=== PATIENT | male | born 1975 ===

== ENCOUNTER 2017-12-07 00:40 | Inpatient (IN) | payer SELFPAY ==
[2017-12-07 00:40] VITALS: BMI 22.3
--- NOTE | 2017-12-07 00:48 | C.PDOC ---
History Of Present Illness Patient presents to the ER as a transfer from [facility] requiring emergent hemodialysis. Patient has Wednesday, , Wednesday dialysis; he initially presented at [place] with SOB and found to be in acute pulmonary edema. Patient is currently speaking in 4-5 word sentences. Denies fever or chills. Time Seen by Provider: 12/07/17 00:47 History Per: Patient, Other ([place] [facility]) History/Exam Limitations: no limitations Onset/Duration Of Symptoms: Hrs Current Symptoms Are (Timing): Still Present Initiating Event: Other (Not known) Exacerbating Factor(s): Coughing, Other (not known) Current Respiratory Medications: See Home Med List Severity: Moderate Pain Scale Rating Of: 4 Associated Symptoms: denies: Fever, Chills Reports Recently: Treated By A Physician Recent travel outside of the [place]: No Additional History Per: Patient Past Medical History Reviewed: Historical Data, Nursing Documentation, Vital Signs Vital Signs: Last Vital Signs Temp 99.2 F 12/07/17 00:41 Pulse 115 H 12/07/17 00:41 Resp 35 H 12/07/17 01:28 BP 202/108 H 12/07/17 00:41 Pulse Ox 84 L 12/07/17 01:34 - Medical History PMH: Chronic Kidney Disease Family History: States: No Known Family Hx - Social History Hx Alcohol Use: No Hx Substance Use: No Review Of Systems Constitutional: Negative for: Fever, Chills ENT: Negative for: Mouth Swelling, Throat Pain, Throat Swelling Cardiovascular: Negative for: Chest Pain, Palpitations Respiratory: Positive for: Shortness of Breath. Negative for: Cough Gastrointestinal: Negative for: Nausea, Vomiting Genitourinary: Negative for: Dysuria, Hematuria Musculoskeletal: Negative for: Neck Pain, Back Pain Skin: Negative for: Rash, Lesions, Jaundice, Bruising Neurological: Negative for: Weakness, Numbness Physical Exam - Physical Exam Appears: Non-toxic Skin: Warm, Dry Head: Normacephalic Eye(s): bilateral: Normal Inspection Oral Mucosa: Dry Throat: No Erythema, No Exudate Neck: Trachea Midline, Supple Chest: Symmetrical, No Tenderness Cardiovascular: Rhythm Regular Respiratory: Decreased Breath Sounds, Rales (At bases), No Rhonchi, No Wheezing Gastrointestinal/Abdominal: Soft, No Tenderness Back: No CVA Tenderness Extremity: Normal ROM, Other (left arm hd graft with good thrill and bruit) Extremity: Bilateral: Atraumatic Neurological/Psych: Oriented x3 Gait: Steady ED Course And Treatment O2 Sat by Pulse Oximetry: 84 (room air) Critical Care Time - Critical Care Note Total Time (in mins): 30 Documented critical care: time excludes all time spent performing seperately billable procedures. Disposition Discussed With Dr.: Kirit Beck Comment: accepted the pt on his service and took over the care at 1:33 AM Doctor Will See Patient In The: ED Counseled Patient/Family Regarding: Studies Performed, Diagnosis - Disposition Disposition: HOSPITALIZED Disposition Time: 00:47 Condition: GUARDED - POA Present On Arrival: None - Clinical Impression Clinical Impression: Acute pulmonary edema, ESRD needing dialysis - Scribe Statement The provider has reviewed the documentation as recorded by the Scribbo Bustos All medical record entries made by the Scribe were at my direction and personally dictated by me. I have reviewed the chart and agree that the record accurately reflects my personal performance of the history, physical exam, medical decision making, and the department course for this patient. I have also personally directed, reviewed, and agree with the discharge instructions and disposition. Decision To Admit - Pt Status Changed To: Hospital Disposition Of: Inpatient - Admit Certification Admit to Inpatient:: After my assessment, the patient will require hospitalization for at least two midnights. This is because of the severity of symptoms shown, intensity of services needed, and/or the medical risk in this patient being treated as an outpatient. - InPatient: Physician Admission Certification: I certify that this patient requires 2 or more midnights of care for the following reason:: After my assessment, the patient will require hospitalization for at least two midnights. This is because of the severity of symptoms shown, intensity of services needed, and/or the medical risk in this patient being treated as an outpatient. - . Bed Request Type: Telemetry Admitting Physician: Kirit Beck Patient Diagnosis: Acute pulmonary edema, ESRD needing dialysis
--- NOTE | 2017-12-07 01:37 | CP.PCM.HP ---
<Gabby Mott - Last Filed: 12/07/17 06:22> History of Present Illness - History of Present Illness History of Present Illness: History and Physical - Hospitalist Service CC: "Shortness of breath and cough" HPI: Patient is a 42 year old male with past medical history of hypertension, ESRD on HD TThS who was transferred from [facility] ED to [facility] for emergent dialysis. Patient states that for the past few days he has been experiencing worsening shortness of breath. He states that he is complaint with hemodialysis and his medications. He denies any increase in fluid or salt intake. When he went to hemodialysis on Wednesday, 1.5L were removed which is more than usual. Patient states that laying down makes shortness of breath worse and sitting up makes it better. He states that this has never happened to him before. Patient also states that he has been experiencing cough for the past two weeks. Within the last 2 days, cough has been productive with orange sputum. He denies any sick contacts or recent travel. Patient is still short of breath and actively coughing. He last saw Dr Duarte 2 weeks ago. At that time, one of his medications were stopped (he is unsure which one) and he was started on Clonidine 0.1mg PO BID. He denies fevers, chills, headaches, dizziness, changes in vision/hearing, nausea/vomiting, chest pain, palpitations, abdominal pain, urinary symptoms, changes in bowel habits, leg swelling/pain. Patient states that he still makes small amounts of urine. 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 Family History: Mother - healthy; Father - healthy Present on Admission - Present on Admission Any Indicators Present on Admission: No Past Patient History - Past Social History Smoking Status: Never Smoked - CARDIAC Hx Cardiac Disorders: No Hx Hypertension: Yes - PULMONARY Hx Respiratory Disorders: No - NEUROLOGICAL Hx Neurological Disorder: No - RENAL Hx Chronic Kidney Disease: Yes - ENDOCRINE/METABOLIC Hx Endocrine Disorders: No - PSYCHIATRIC Hx Substance Use: No - SURGICAL HISTORY Hx Surgeries: No - ANESTHESIA Hx Anesthesia: Yes Hx Anesthesia Reactions: No Meds Allergies/Adverse Reactions: Allergies Allergy/AdvReac Type Severity Reaction Status Date / Time No Known Allergies Allergy Verified 12/07/17 00:48 Physical Exam - Constitutional Appears: Non-toxic, In Acute Distress - Head Exam Head Exam: ATRAUMATIC, NORMAL INSPECTION, NORMOCEPHALIC - Eye Exam Eye Exam: EOMI, PERRL Pupil Exam: NORMAL ACCOMODATION - ENT Exam ENT Exam: Mucous Membranes Moist, Normal Oropharynx - Neck Exam Neck exam: Positive for: Normal Inspection. Negative for: Lymphadenopathy, Tenderness, Thyromegaly - Respiratory Exam Respiratory Exam: Decreased Breath Sounds, Rales, Respiratory Distress. absent: Accessory Muscle Use, Wheezes, Stridor - Cardiovascular Exam Cardiovascular Exam: Tachycardia, +S1, +S2. absent: Systolic Murmur - GI/Abdominal Exam GI & Abdominal Exam: Normal Bowel Sounds, Soft. absent: Guarding, Rebound, Rigid, Tenderness - Extremities Exam Extremities exam: Positive for: normal capillary refill, normal inspection, pedal pulses present. Negative for: calf tenderness, joint swelling, pedal edema - Back Exam Back exam: NORMAL INSPECTION - Neurological Exam Neurological exam: Alert, CN II-XII Intact, Oriented x3 - Psychiatric Exam Psychiatric exam: Anxious, Normal Mood - Skin Skin Exam: Dry, Normal Color, Warm Results - Vital Signs Recent Vital Signs: Last Vital Signs Temp 99.2 F 12/07/17 00:41 Pulse 115 H 12/07/17 00:41 Resp 35 H 12/07/17 01:28 BP 202/108 H 12/07/17 00:41 Pulse Ox 84 L 12/07/17 01:34 Assessment & Plan - Assessment and Plan (Free Text) Assessment: A/P: Patient is a 42 year old male with past medical history of ESRD on HD TThS and Hypertension who presented with worsening shortness of breath and cough. Patient transferred to [facility] for emergent dialysis. Shortness of Breath likely 2/2 fluid overload -Will admit inpatient to telemetry -CXR showed pulmonary venous congestion (official report pending) -EKG showed sinus tachycardia -Elevated BNP 233,000 -Echocardiogram ordered -Nephrology on consult, help appreciated -Supplemental O2 as needed Productive cough, r/o infectious etiology -Blood cultures, UA pending -F/U urine legionella, urine strep pneumo, mycoplasma -Robitussin DM Q4H prn cough ESRD on HD -Patient currently receiving dialysis -Will resume Calcium acetate 667mg PO TID -Renal diet: low sodium, fluid restriction -Daily weights and intake/output -Nephrology on consult, Dr Duarte, help appreciated Hypertension -Clonidine 0.1mg PO BID -Aldactone 25mg PO daily -Norvasc 10mg PO daily -Benzapril 40mg PO daily Anemia -Hemoglobin 10.7 on admission, Unknown baseline -Likely secondary to chronic disease -Monitor hemoglobin GI/DVT ppx: -No GI ppx indicated at this time -SCDs Plan discussed with Dr Kary Mott DO PGY-2 <Kirit Beck - Last Filed: 12/07/17 06:32> Results - Vital Signs Recent Vital Signs: Last Vital Signs Temp 98.2 F 12/07/17 06:23 Pulse 108 H 12/07/17 06:23 Resp 26 H 12/07/17 06:23 BP 182/110 H 12/07/17 06:23 Pulse Ox 95 12/07/17 06:23 - Labs Labs: Laboratory Results - last 24 hr 12/07/17 01:23 Lactic Acid 1.6 Assessment & Plan - Date & Time Date: 12/07/17 (I have seen and examined the patient. I agree with the findings and plan of care as documented by Dr. Mott. Patient with ESRD on dialysis. Also with SOB. Likely related to fluid overload. Consult to nephro for dialysis. Monitor for acute changes.) Time: 06:31 Attending/Attestation - Attestation I have personally seen and examined this patient.: Yes I have fully participated in the care of the patient.: Yes I have reviewed all pertinent clinical information: Yes
[2017-12-07] MEDS: guaiFENesin DM 100 mg-10 mg/5 ml UD PO PRN ×2 (05:36→21:13)
[2017-12-07] MEDS ORDERED: guaiFENesin DM 100 mg-10 mg/5 ml UD ONE (05:38)
[2017-12-07 07:07] LABS: BASO # 0.1 K/uL (0.0-0.2); EOS % 0.5 % (0.0-4.0); HEMOGLOBIN 11.5 g/dL (12.0-18.0); LYMPH # 1.5 K/uL (1.0-4.3); MEAN CELL VOLUME 93.2 fL (80.0-94.0); MEAN CORPUSCULAR HEMOGLOBIN 31.7 pg (27.0-31.0); MEAN PLATELET VOLUME 10.6 fL (7.2-11.7); MONO # 0.4 K/uL (0.0-0.8); MONO % 6.2 % (0.0-10.0); NEUT # 4.8 K/uL (1.8-7.0); NEUT % 70.3 % (50.0-75.0); RBC 3.64 Mil/uL (4.40-5.90); RED CELL DISTRIBUTION WIDTH 16.6 % (11.5-14.5); WHITE BLOOD COUNT 6.8 K/uL (4.8-10.8)
--- NOTE | 2017-12-07 08:08 | CP.PCM.CON ---
<Gabriella Mejia - Last Filed: 12/07/17 14:02> History of Present Illness - History of Present Illness History of Present Illness: Gabriella Mejia DO, PGY-2: Nephrology Consult Note for Dr. Duarte 42 year old male with a past medical history of ESRD on HD TTS and hypertension who presents with 1 week of a dry cough and one day of severe dyspnea and paroxysmal nocturnal dyspnea. He originally presented overnight to [facility] and was transferred to [facility] to undergo emergent dialysis. 1 L of fluid was removed last night. On Wednesday he had 1.5 L of fluid removed. He reports attending all of his dialysis sessions last week. He reports taking all of his medication as prescribed. He denies any increase in salt intake or fluid intake. Two weeks ago he reports that was switched from Hydralazine to Clonidine by his primary material man. He denies experiencing any severe chest pain, diaphoresis, palpitation, headache, nausea, dysuria, vomiting, fever, chills, or myalgia. he also denies having any sick contacts. 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 Family History: Mother - healthy; Father - healthy Review of Systems - Review of Systems All systems: reviewed and no additional remarkable complaints except (as per HPI) Past Patient History - Past Social History Smoking Status: Never Smoked - CARDIAC Hx Cardiac Disorders: No Hx Hypertension: Yes - PULMONARY Hx Respiratory Disorders: No - NEUROLOGICAL Hx Neurological Disorder: No - RENAL Hx Chronic Kidney Disease: Yes - ENDOCRINE/METABOLIC Hx Endocrine Disorders: No - PSYCHIATRIC Hx Substance Use: No - SURGICAL HISTORY Hx Surgeries: No - ANESTHESIA Hx Anesthesia: Yes Hx Anesthesia Reactions: No Meds Allergies/Adverse Reactions: Allergies Allergy/AdvReac Type Severity Reaction Status Date / Time No Known Allergies Allergy Verified 12/07/17 00:48 - Medications Medications: Current Medications Amlodipine Besylate (Norvasc) 10 mg PO DAILY [facility] Calcium Acetate (Phoslo) 667 mg PO TIDCC [facility] Clonidine HCl (Catapres) 0.1 mg PO BID [facility] Enalapril Maleate (Vasotec) 20 mg PO DAILY [facility] Guaifenesin/Dextromethorphan (Robitussin Dm) 5 ml PO Q4H PRN PRN Reason: Cough Last Admin: 12/07/17 05:36 Dose: 5 ml Spironolactone (Aldactone) 25 mg PO DAILY [facility] Physical Exam - Constitutional Appears: Other (some distress) - Head Exam Head Exam: ATRAUMATIC, NORMOCEPHALIC - Eye Exam Eye Exam: EOMI, Normal appearance - ENT Exam ENT Exam: Mucous Membranes Dry - Neck Exam Additional comments: JVD noted - Respiratory Exam Respiratory Exam: Rales Additional comments: RR of 28 - Cardiovascular Exam Cardiovascular Exam: RRR, +S1, +S2 - GI/Abdominal Exam GI & Abdominal Exam: Normal Bowel Sounds, Soft - Extremities Exam Extremities exam: Positive for: normal inspection. Negative for: calf tenderness, pedal edema - Back Exam Back exam: absent: CVA tenderness (L), CVA tenderness (R) - Neurological Exam Neurological exam: Alert, CN II-XII Intact, Oriented x3 - Psychiatric Exam Psychiatric exam: Normal Affect, Normal Mood - Skin Skin Exam: Dry, Intact, Normal Color, Warm Results - Vital Signs Recent Vital Signs: Last Vital Signs Temp 98.2 F 12/07/17 06:23 Pulse 110 H 12/07/17 07:54 Resp 30 H 12/07/17 07:54 BP 182/109 H 12/07/17 07:54 Pulse Ox 96 12/07/17 07:54 - Labs Result Diagrams: 12/07/17 06:55 12/07/17 06:55 Labs: Laboratory Results - last 24 hr 12/07/17 12/07/17 01:23 06:55 WBC 6.8 RBC 3.64 L Hgb 11.5 L Hct 33.9 L MCV 93.2 MCH 31.7 H MCHC 34.0 RDW 16.6 H Plt Count 135 MPV 10.6 Neut % (Auto) 70.3 Lymph % (Auto) 22.0 [place] % (Auto) 6.2 Eos % (Auto) 0.5 Baso % (Auto) 1.0 Neut # (Auto) 4.8 Lymph # (Auto) 1.5 [place] # (Auto) 0.4 Eos # (Auto) 0.0 Baso # (Auto) 0.1 Lactic Acid 1.6 Assessment & Plan - Assessment and Plan (Free Text) Assessment: 42 year old male with ESRD and hypertension who presents with one week of worsening dyspnea, dry cough, and paroxysmal dyspnea warranting emergent HD. Currently, the patient has been safely transferred from [facility] to [facility] and been dialysed 1 L overnight with the intent to dialyze the patient today 2.5 L and again tomorrow. Echocardiogram is pending. 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 Duarte - Date & Time Date: 12/07/17 Time: 09:00 <Austen Duarte - Last Filed: 12/08/17 08:22> Meds - Medications Medications: Current Medications Amlodipine Besylate (Norvasc) 10 mg PO DAILY [facility] Calcium Acetate (Phoslo) 2,001 mg PO TIDCC [facility] Last Admin: 12/07/17 18:00 Dose: Not Given Clonidine HCl (Catapres) 0.1 mg PO BID [facility] Last Admin: 12/07/17 17:32 Dose: 0.1 mg Furosemide (Lasix) 40 mg IVP BID [facility] Guaifenesin/Dextromethorphan (Robitussin Dm) 5 ml PO Q4H PRN PRN Reason: Cough Last Admin: 12/07/17 21:13 Dose: 5 ml Lisinopril (Zestril) 40 mg PO DAILY [facility] Spironolactone (Aldactone) 25 mg PO DAILY [facility] Results - Vital Signs Recent Vital Signs: Last Vital Signs Temp 98.4 F 12/08/17 07:59 Pulse 98 H 12/08/17 07:59 Resp 20 12/08/17 07:59 BP 146/94 H 12/08/17 07:59 Pulse Ox 96 12/08/17 07:59 - Labs Result Diagrams: 12/08/17 06:29 12/07/17 06:55 Labs: Laboratory Results - last 24 hr 12/07/17 12/07/17 12/07/17 06:55 06:55 22:38 WBC RBC Hgb Hct MCV MCH MCHC RDW Plt Count MPV Neut % (Auto) Lymph % (Auto) [place] % (Auto) Eos % (Auto) Baso % (Auto) Neut # (Auto) Lymph # (Auto) [place] # (Auto) Eos # (Auto) Baso # (Auto) Sodium 142 Potassium 4.3 Chloride 97 L Carbon Dioxide 28 Anion Gap 21 H BUN 44 H Creatinine 10.1 H* Est GFR ( Amer) 7 Est GFR (Non-Af Amer) 6 Random Glucose 93 Calcium 9.4 Phosphorus 5.8 H Magnesium 2.1 Total Bilirubin 1.1 AST 23 ALT 26 Alkaline Phosphatase 80 Total Protein 6.9 Albumin 3.7 Globulin 3.2 Albumin/Globulin Ratio 1.1 Urine Color Yellow Urine Clarity Clear Urine pH 9.0 Ur Specific [place] 1.010 Urine Protein 3+ H Urine Glucose (UA) 2+ H Urine Ketones Negative Urine Blood Negative Urine Nitrate Negative Urine Bilirubin Negative Urine Urobilinogen Normal Ur Leukocyte Esterase Neg Urine WBC (Auto) 1 Urine RBC (Auto) < 1 Urine Bacteria Rare Urine Opiates Screen Urine Methadone Screen Ur Barbiturates Screen Ur Phencyclidine Scrn Ur Amphetamines Screen U Benzodiazepines Scrn U Oth Cocaine Metabols U Cannabinoids Screen Mycoplasma pneumon IgM Negative 12/07/17 12/08/17 22:38 06:29 WBC 7.0 RBC 3.66 L Hgb 11.6 L Hct 34.8 L MCV 94.9 H MCH 31.7 H MCHC 33.4 RDW 16.7 H Plt Count 131 MPV 11.0 Neut % (Auto) 63.7 Lymph % (Auto) 23.1 [place] % (Auto) 8.7 Eos % (Auto) 3.9 Baso % (Auto) 0.6 Neut # (Auto) 4.5 Lymph # (Auto) 1.6 [place] # (Auto) 0.6 Eos # (Auto) 0.3 Baso # (Auto) 0.0 Sodium Potassium Chloride Carbon Dioxide Anion Gap BUN Creatinine Est GFR ( Amer) Est GFR (Non-Af Amer) Random Glucose Calcium Phosphorus Magnesium Total Bilirubin AST ALT Alkaline Phosphatase Total Protein Albumin Globulin Albumin/Globulin Ratio Urine Color Urine Clarity Urine pH Ur Specific [place] Urine Protein Urine Glucose (UA) Urine Ketones Urine Blood Urine Nitrate Urine Bilirubin Urine Urobilinogen Ur Leukocyte Esterase Urine WBC (Auto) Urine RBC (Auto) Urine Bacteria Urine Opiates Screen Negative Urine Methadone Screen Negative Ur Barbiturates Screen Negative Ur Phencyclidine Scrn Negative Ur Amphetamines Screen Negative U Benzodiazepines Scrn Negative U Oth Cocaine Metabols Negative U Cannabinoids Screen Negative Mycoplasma pneumon IgM Attending/Attestation - Attestation I have personally seen and examined this patient.: Yes I have fully participated in the care of the patient.: Yes I have reviewed all pertinent clinical information: Yes Notes (Text): Patient seen and examined; I agree with the resident's note as above with the following additions/edits: Patient with htn, being managed by our outpatient ESRD service, on HD, admitted with worsening dyspnea; Dialyzed emergently overnight for acute decompensated CHF; echo done today showing systolic dysfunction, pulmonary htn (no previous echo available); possible RLL pneumonia as well; patient dialyzed again later today for additional volume removal; HTN of ESRD with BP difficult to control despite escalating drug therapy; will continue with clonidine 0.1 mg bid, amlodipine 10 mg daily and lisinopril 40 mg daily (benazepril not available here); Discussed at length with primary attending; agree with need for cardio consult; will also add IV lasix 40 mg bid (may need to increase further); Otherwise stable electrolyte status; will keep on phoslo 4 tabs w/ meals; Thank you for this referral, we will continue to co-manage with primary team. Critical care time spent > 35 minutes.
[2017-12-07 08:41] LABS: ALB/GLOB RATIO 1.1 (1.0-2.1); ALBUMIN 3.7 g/dL (3.5-5.0); CALCIUM 9.4 mg/dl (8.6-10.4)
[2017-12-07] MEDS ORDERED: Azithromycin 500 MG in Sodium Chloride 0.9% 250 ML IVPB SCH (12:00)
--- NOTE | 2017-12-07 17:37 | CP.PCM.PN ---
<Cherry Montgomery P - Last Filed: 12/08/17 00:03> Subjective - Date & Time of Evaluation Date of Evaluation: 12/07/17 Time of Evaluation: 08:00 - Subjective Subjective: PGY-[address] Maurer. Patient seen and examined at bedside. Patient complains of continued dry cough and shortness of breath only when laying down. States he feels fine when sitting up. Denies fever, chills, chest pain, leg swelling. States he can walk up to 20 blocks without feeling short of breath. Patient had dialysis overnight. Objective - Vital Signs/Intake and Output Vital Signs (last 24 hours): Temp Pulse Resp BP Pulse Ox 97.9 F 102 H 20 162/105 H 96 12/07/17 15:10 12/07/17 15:29 12/07/17 15:10 12/07/17 17:10 12/07/17 15:10 - Medications Medications: Current Medications Amlodipine Besylate (Norvasc) 10 mg PO DAILY [facility] Calcium Acetate (Phoslo) 2,001 mg PO TIDCC [facility] Clonidine HCl (Catapres) 0.1 mg PO BID [facility] Last Admin: 12/07/17 17:32 Dose: 0.1 mg Enalapril Maleate (Vasotec) 20 mg PO DAILY [facility] Guaifenesin/Dextromethorphan (Robitussin Dm) 5 ml PO Q4H PRN PRN Reason: Cough Last Admin: 12/07/17 05:36 Dose: 5 ml Ceftriaxone Sodium 1 gm/ (Sodium Chloride) 100 mls @ 100 mls/hr IVPB Q24H [facility] Last Admin: 12/07/17 12:34 Dose: 100 mls/hr Azithromycin 500 mg/ Sodium (Chloride) 250 mls @ 250 mls/hr IVPB DAILY [facility] Last Admin: 12/07/17 13:00 Dose: 250 mls/hr Spironolactone (Aldactone) 25 mg PO DAILY [facility] - Labs Labs: 12/07/17 06:55 12/07/17 06:55 - Constitutional Appears: No Acute Distress - Head Exam Head Exam: ATRAUMATIC, NORMOCEPHALIC - Eye Exam Eye Exam: EOMI, PERRL - ENT Exam ENT Exam: Mucous Membranes Moist - Neck Exam Neck Exam: Full ROM - Respiratory Exam Respiratory Exam: Rales (bibasilar). absent: Rhonchi, Wheezes Additional comments: Tachypneic - Cardiovascular Exam Cardiovascular Exam: Tachycardia, +S1, +S2 - GI/Abdominal Exam GI & Abdominal Exam: Soft. absent: Guarding, Tenderness, Rebound - Extremities Exam Extremities Exam: Full ROM. absent: Calf Tenderness, Pedal Edema - Neurological Exam Neurological Exam: Alert, Awake, Oriented x3 - Psychiatric Exam Psychiatric exam: Normal Affect, Normal Mood - Skin Skin Exam: Dry, Normal Color, Warm Assessment and Plan - Assessment and Plan (Free Text) Plan: A/P: Patient is a 42 year old male with past medical history of ESRD on HD TThS and Hypertension who presented with worsening shortness of breath and cough. Patient transferred to [facility] for emergent dialysis. Shortness of Breath likely 2/2 fluid overload -Will admit inpatient to telemetry -CXR 12/06/17: Bibasilar infiltrates. Possible very small L pleural effusion. Fol low up advised. -Repeat CXR -EKG showed sinus tachycardia -Elevated BNP 233,000 -Echocardiogram 12/07/17: LV is mildly dilated. Mild concentric LV hypertrophy. EF is 30-35%. Global hypokenesis of LV. Markedly increased LA volume index of 62. Moderate to severe LV diastolic dysfunction. LA is moderately dilated. ASD with L->R shunt, ostium secundum. (see full report) -Nephrology on consult, help appreciated -Supplemental O2 as needed Cough, r/o infectious etiology -Blood cultures pending -Mycoplasma negative -F/U urine legionella, urine strep pneumo -Robitussin DM Q4H prn cough -Started on azithromycin 500mg IVPB daily, ceftriaxone 1gm IVPB daily ESRD on HD TTS -Patient received dialysis 12/07/17 1am -Will resume Calcium acetate 667mg PO TID -Renal diet: low sodium, fluid restriction -Daily weights and intake/output -Nephrology on consult, Dr Duarte, help appreciated Patient to undergo additional dialysis session 12/07/17 Hypertension -Clonidine 0.1mg PO BID -Aldactone 25mg PO daily -Norvasc 10mg PO daily -Enalapril 20mg PO daily -Furosemide 40mg BID Anemia -Hemoglobin 10.7 on admission, 11.5 on 12/07/17 -Likely secondary to chronic disease -Monitor hemoglobin GI/DVT ppx: -No GI ppx indicated at this time -SCDs <Jimmy Maurer - Last Filed: 12/09/17 12:30> Objective - Vital Signs/Intake and Output Vital Signs (last 24 hours): Temp Pulse Resp BP Pulse Ox 98.2 F 80 20 139/84 99 12/09/17 08:11 12/09/17 08:11 12/09/17 08:11 12/09/17 09:33 12/09/17 08:11 Intake and Output: 12/09/17 12/09/17 06:59 18:59 Intake Total 300 Balance 300 - Medications Medications: Current Medications Amlodipine Besylate (Norvasc) 10 mg PO DAILY [facility] Last Admin: 12/09/17 09:34 Dose: 10 mg Calcium Acetate (Phoslo) 2,001 mg PO TIDCC [facility] Last Admin: 12/09/17 08:12 Dose: 2,001 mg Carvedilol (Coreg) 25 mg PO BID [facility] Last Admin: 12/09/17 09:33 Dose: 25 mg Clonidine HCl (Catapres) 0.1 mg PO BID [facility] Last Admin: 12/09/17 09:34 Dose: 0.1 mg Furosemide (Lasix) 40 mg IVP BID [facility] Last Admin: 12/09/17 09:33 Dose: 40 mg Guaifenesin/Dextromethorphan (Robitussin Dm) 5 ml PO Q4H PRN PRN Reason: Cough Last Admin: 12/07/17 21:13 Dose: 5 ml Losartan Potassium (Cozaar) 50 mg PO BID [facility] Last Admin: 12/09/17 09:33 Dose: 50 mg Spironolactone (Aldactone) 25 mg PO DAILY [facility] - Labs Labs: 12/09/17 07:06 12/09/17 07:06 Attending/Attestation - Attestation I have personally seen and examined this patient.: Yes I have fully participated in the care of the patient.: Yes I have reviewed all pertinent clinical information, including history, physical exam and plan: Yes Notes (Text): Patient was seen and examined by me. Patient's breathing is better. Has Orthopnea,high BNP Eco done showed Systolic heart failure EF 35%,pulmonary HTN and pericardial effusion. 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
--- NOTE | 2017-12-07 18:53 | CARD ---
APPROVED REPORT Date of service: 12/07/2017 EXAM: Two-dimensional and M-mode echocardiogram with Doppler and color Doppler. Other Information Quality : GoodRhythm : INDICATION Dyspnea Congestive Heart Failure Acute Pulmonary Edema 2D DIMENSIONS IVSd1.3 (0.7-1.1cm)Aortic Root (2D)3.1 (2.0-3.7cm) LVDd5.5 (3.9-5.9cm)PWd1.6 (0.7-1.1cm) LVDs4.7 (2.5-4.0cm)FS (%) 14.7 % LVEF (%)35.0 (>50%) M-Mode DIMENSIONS RVDd1.46 (2.1-3.2cm)Left Atrium (MM)4.76 (2.5-4.0cm) IVSd1.28 (0.7-1.1cm)Aortic Root3.01 (2.2-3.7cm) LVDd5.93 (4.0-5.6cm)Aortic Cusp Exc.2.37 (1.5-2.0cm) PWd1.18 (0.7-1.1cm)FS (%) 20 % LVDs4.75 (2.0-3.8cm)LVEF (%)35 (>50%) Mitral Valve MV E Vxcvytvc13.2cm/sMV A Zkynpiul87.8cm/sE/A ratio2.3 PISA0.68 cm TDI E/Lateral E'0.0E/Medial E'0.0 Tricuspid Valve TR Peak [id number]/sTR Peak [id number] LEFT VENTRICLE The Left Ventricle is mildly dilated. There is mild concentric left ventricular hypertrophy. The Ejection Fraction is 30-35%. There is global hypokinesis of the left ventricle. markedly increased la volume index of 62 mm /m2.moderate to severe lv diastolic dysfunction. RIGHT VENTRICLE The right ventricle is normal size. The right ventricular systolic function is normal. ATRIA The left atrium is moderately dilated. The right atrium size is normal. asd with lt to rt shunt,ostium secundum. AORTIC VALVE The aortic valve is trileaflet. There is trace aortic regurgitation. MITRAL VALVE The mitral valve is normal in structure. Mitral regurgitation is mild to moderate. TRICUSPID VALVE The tricuspid valve is normal in structure. There is moderate tricuspid regurgitation. Right ventricular systolic pressure is estimated at 60 mmHg. There is moderate-severe pulmonary hypertension. PULMONIC VALVE The pulmonary valve is normal in structure. GREAT VESSELS The aortic root is normal in size. Dilated IVC with poor inspiration collapse is consistent with elevated right atrial pressure. PERICARDIAL EFFUSION mild to moderate anterior & posterior pericardial effusion noted. <Conclusion> The Left Ventricle is mildly dilated. There is mild concentric left ventricular hypertrophy. The Ejection Fraction is 30-35%. There is global hypokinesis of the left ventricle. markedly increased la volume index of 62 mm /m2.moderate to severe lv diastolic dysfunction. The left atrium is moderately dilated. asd with lt to rt shunt,ostium secundum. Mitral regurgitation is mild to moderate. There is moderate tricuspid regurgitation. Right ventricular systolic pressure is estimated at 60 mmHg. There is moderate-severe pulmonary hypertension. Dilated IVC with poor inspiration collapse is consistent with elevated right atrial pressure. mild to moderate anterior & posterior pericardial effusion noted. suggest katrin.
[2017-12-07 22:47] LABS: URINE BACTERIA RARE (<OCC); URINE BILIRUBIN NEGATIVE (NEGATIVE); URINE BLOOD NEGATIVE (NEGATIVE); URINE CLARITY Clear (Clear); URINE COLOR Yellow (YELLOW); URINE GLUCOSE (UA) 2+ mg/dL (Normal); URINE LEUKOCYTE ESTERASE NEG Leu/uL (Negative); URINE PROTEIN 3+ mg/dL (NEGATIVE); URINE UROBILINOGEN NORMAL mg/dL (0.2-1.0)
[2017-12-07 22:57] LABS: BARBITURATES, UR NEGATIVE (NEGATIVE); BENZODIAZEPINES, UR NEGATIVE (NEGATIVE); OPIATES, UR NEGATIVE (NEGATIVE); PHENCYCLIDINE, UR NEGATIVE (NEGATIVE)
[2017-12-08 07:08] LABS: BASO % 0.6 % (0.0-2.0); EOS # 0.3 K/uL (0.0-0.7); EOS % 3.9 % (0.0-4.0); HEMOGLOBIN 11.6 g/dL (12.0-18.0); LYMPH # 1.6 K/uL (1.0-4.3); LYMPH % 23.1 % (20.0-40.0); MEAN CELL VOLUME 94.9 fL (80.0-94.0); MEAN CORPUSCULAR HEMOGLOBIN 31.7 pg (27.0-31.0); MEAN CORPUSCULAR HGB CONC 33.4 g/dL (33.0-37.0); MONO # 0.6 K/uL (0.0-0.8); MONO % 8.7 % (0.0-10.0); NEUT # 4.5 K/uL (1.8-7.0); NEUT % 63.7 % (50.0-75.0); RBC 3.66 Mil/uL (4.40-5.90); RED CELL DISTRIBUTION WIDTH 16.7 % (11.5-14.5)
[2017-12-08 08:29] LABS: ALB/GLOB RATIO 1.1 (1.0-2.1); ALBUMIN 3.4 g/dL (3.5-5.0); CALCIUM 9.5 mg/dl (8.6-10.4)
[2017-12-08 09:45] LABS: LEGIONELLA AG URINE NEGATIVE (NEGATIVE)
--- NOTE | 2017-12-08 09:45 | CP.PCM.PN ---
<Cherry Montgomery P - Last Filed: 12/08/17 22:32> Subjective - Date & Time of Evaluation Date of Evaluation: 12/08/17 Time of Evaluation: 07:00 - Subjective Subjective: PGY-[address] Maurer. Patient seen and examined at bedside. No acute events overnight. Patient states he feels much better after dialysis; he was able to sleep through the night without coughing. Also reports orthopnea has improved. Denies fever, chills, diaphoresis, chest pain, leg swelling. Patient is to go for another dialysis session today. Objective - Vital Signs/Intake and Output Vital Signs (last 24 hours): Temp Pulse Resp BP Pulse Ox 98.4 F 98 H 20 146/94 H 96 12/08/17 07:59 12/08/17 07:59 12/08/17 07:59 12/08/17 07:59 12/08/17 07:59 - Medications Medications: Current Medications Amlodipine Besylate (Norvasc) 10 mg PO DAILY [facility] Calcium Acetate (Phoslo) 2,001 mg PO TIDCC [facility] Last Admin: 12/07/17 18:00 Dose: Not Given Clonidine HCl (Catapres) 0.1 mg PO BID [facility] Last Admin: 12/07/17 17:32 Dose: 0.1 mg Furosemide (Lasix) 40 mg IVP BID [facility] Guaifenesin/Dextromethorphan (Robitussin Dm) 5 ml PO Q4H PRN PRN Reason: Cough Last Admin: 12/07/17 21:13 Dose: 5 ml Lisinopril (Zestril) 40 mg PO DAILY [facility] Spironolactone (Aldactone) 25 mg PO DAILY [facility] - Labs Labs: 12/08/17 06:29 12/08/17 06:29 - Constitutional Appears: Non-toxic, No Acute Distress - Head Exam Head Exam: ATRAUMATIC, NORMOCEPHALIC - Eye Exam Eye Exam: EOMI, PERRL - ENT Exam ENT Exam: Mucous Membranes Moist - Neck Exam Neck Exam: Full ROM - Respiratory Exam Respiratory Exam: Decreased Breath Sounds (R base). absent: Rales, Rhonchi, Wheezes - Cardiovascular Exam Cardiovascular Exam: REGULAR RHYTHM, +S1, +S2. absent: Tachycardia - GI/Abdominal Exam GI & Abdominal Exam: Soft. absent: Guarding, Tenderness, Rebound - Extremities Exam Extremities Exam: Full ROM. absent: Calf Tenderness, Pedal Edema - Neurological Exam Neurological Exam: Alert, Awake, Oriented x3 Assessment and Plan - Assessment and Plan (Free Text) Plan: A/P: Patient is a 42 year old male with past medical history of ESRD on HD TThS and Hypertension who presented with worsening shortness of breath and cough. Patient transferred to [facility] for emergent dialysis. Shortness of Breath likely 2/2 fluid overload -CXR 12/06/17: Bibasilar infiltrates. Possible very small L pleural effusion. Follow up advised. -Repeat CXR 12/08/17: Cardiomegaly and presumed cardiogenic pulmonary edema. (see full report). -EKG on admission showed sinus tachycardia -Repeat EKG 12/08/17: NSR with prolonged QTc at 480ms -Elevated BNP 233,000 -Echocardiogram 12/07/17: LV is mildly dilated. Mild concentric LV hypertrophy. EF is 30-35%. Global hypokenesis of LV. Markedly increased LA volume index of 62. Moderate to severe LV diastolic dysfunction. LA is moderately dilated. ASD with L->R shunt, ostium secundum. (see full report) -Nephrology on consult, help appreciated -Cardiology, Dr. Lizarraga, consulted. Help appreciated. Cough, r/o infectious etiology -Blood cultures: prelim- No growth 24H -Mycoplasma, legionella, strep pneumo negative -Robitussin DM Q4H prn cough -Dc'ed azithromycin 500mg, ceftriaxone 1gm due to QT prolongation ESRD on HD TTS -Patient received dialysis 12/06, 12/07, 12/08 -Will resume Calcium acetate 667mg PO TID -Renal diet: low sodium, fluid restriction -Daily weights and intake/output -Nephrology on consult, Dr Duarte, help appreciated daily dialysis for improvement of symptoms Hypertension with new onset cardiomyopathy -Clonidine 0.1mg PO BID -Norvasc 10mg PO daily -Furosemide 40mg BID -Losartan 50mg BID -Carvedilol 25mg BID -Cardiology, Dr. Lizarraga, consulted. Help appreciated. Aggressive BP control. Recommend outpatient CAD assessment. If no LVEF improvement in 3-4 months, ICD advised. Add losartan and carvedilol, DC ACEi and hold aldactone Anemia -Hemoglobin 10.7 on admission, 11.5 on 12/07/17 -Likely secondary to chronic disease -Monitor hemoglobin GI/DVT ppx: -No GI ppx indicated at this time -SCDs <Jimmy Maurer - Last Filed: 12/09/17 13:30> Objective - Vital Signs/Intake and Output Vital Signs (last 24 hours): Temp Pulse Resp BP Pulse Ox 98.2 F 80 20 139/84 99 12/09/17 08:11 12/09/17 08:11 12/09/17 08:11 12/09/17 09:33 12/09/17 08:11 Intake and Output: 12/09/17 12/09/17 06:59 18:59 Intake Total 300 Balance 300 - Medications Medications: Current Medications Amlodipine Besylate (Norvasc) 10 mg PO DAILY [facility] Last Admin: 12/09/17 09:34 Dose: 10 mg Calcium Acetate (Phoslo) 2,001 mg PO TIDCC [facility] Last Admin: 12/09/17 08:12 Dose: 2,001 mg Carvedilol (Coreg) 25 mg PO BID [facility] Last Admin: 12/09/17 09:33 Dose: 25 mg Clonidine HCl (Catapres) 0.1 mg PO BID [facility] Last Admin: 12/09/17 09:34 Dose: 0.1 mg Furosemide (Lasix) 40 mg IVP BID [facility] Last Admin: 12/09/17 09:33 Dose: 40 mg Guaifenesin/Dextromethorphan (Robitussin Dm) 5 ml PO Q4H PRN PRN Reason: Cough Last Admin: 12/07/17 21:13 Dose: 5 ml Losartan Potassium (Cozaar) 50 mg PO BID [facility] Last Admin: 12/09/17 09:33 Dose: 50 mg Spironolactone (Aldactone) 25 mg PO DAILY [facility] - Labs Labs: 12/09/17 07:06 12/09/17 07:06 Attending/Attestation - Attestation I have personally seen and examined this patient.: Yes I have fully participated in the care of the patient.: Yes I have reviewed all pertinent clinical information, including history, physical exam and plan: Yes Notes (Text): Seen and examined him at dialysis unit. No complain,Denies sob,discussed about controlling his blood pressure. Patient states that he takes his medication without missing On examination his lungs clear,no arrhythmia noted mild prolonged QT Seen by DR Lizarraga His recommendation's appreciated 1. CHF with Severe systolic and diastolic dysfunction EF 20% Patient came with pulmonary edema, Control BP Patient should have repeat Echo in 3 to 4 months as per [employer]moving [employer]. If no improvement he will need an AICD 2.Uncontrolled Hypertension monitor BP on Cozaar,losartan,amlodipine and
[2017-12-08] MEDS ORDERED: Azithromycin 500 MG in Sodium Chloride 0.9% 250 ML IVPB SCH (10:00)
--- NOTE | 2017-12-08 11:10 | RAD ---
Date of service: 12/08/2017 HISTORY: follow up bibasilar infiltrates COMPARISON: No prior. TECHNIQUE: Chest PA and lateral FINDINGS: LUNGS: Perihilar alveolar infiltrates right greater than left likely pulmonary edema. PLEURA: No significant pleural effusion identified. No pneumothorax apparent. CARDIOVASCULAR: Cardiomegaly. OSSEOUS STRUCTURES: No significant abnormalities. VISUALIZED UPPER ABDOMEN: Normal. OTHER FINDINGS: None. IMPRESSION: Cardiomegaly and presumed cardiogenic pulmonary edema. No comparison studies.
[2017-12-08 11:38] LABS: N MENINGITIS ACY/W135 NEGATIVE (NEGATIVE); N MENINGITIS B/ECOLI K1 NEGATIVE (NEGATIVE); STREP PNEUMONIAE NEGATIVE (NEGATIVE); STREPTOCOCCUS B NEGATIVE (NEGATIVE)
--- NOTE | 2017-12-08 17:18 | CP.PCM.CON ---
History of Present Illness - History of Present Illness History of Present Illness: The pt is a 42 year old man with severe HTN, not a diabetic or smoker, who has been on dialysis for three and a half years. The patient was just recently admitted to [facility] for CHF, and now here for the same. TNI at [place] was trivially elevated. .19. pt denies chest pressure or syncope. CXR is c/w CHF. pt now feels much better after dialysis, but BP remains high. He has a dry cough ECG shows nsr or s tach, mildly prolonged QTc. Echo as per va: severely reduced LV EF. EF is more like 20%, not 35% as reported. Also there is advanced diastolic dysfunction, restrictive filling and markedly increase LA volume index: both are c/w elevated left atrial pressure, increased mortality and repeat hospital admission. A PFO is seen with left to right flow, not an ASD as reported. There is marked pulmonary HTN. Pericardial e ffusion is only trivial, not mild to moderate, as reported. . Review of Systems - Review of Systems All systems: reviewed and no additional remarkable complaints except (as above/) Past Patient History - Past Medical History & Family History Past Medical History?: Yes - Past Social History Smoking Status: Never Smoked - CARDIAC Hx Cardiac Disorders: No Hx Hypertension: Yes - PULMONARY Hx Respiratory Disorders: No - NEUROLOGICAL Hx Neurological Disorder: No - RENAL Hx Chronic Kidney Disease: Yes - ENDOCRINE/METABOLIC Hx Endocrine Disorders: No - HEMATOLOGICAL/ONCOLOGICAL Hx Blood Disorders: No - INTEGUMENTARY Hx Dermatological Problems: No - MUSCULOSKELETAL/RHEUMATOLOGICAL Hx Falls: No - GASTROINTESTINAL Hx Gastrointestinal Disorders: No - GENITOURINARY/GYNECOLOGICAL Hx Genitourinary Disorders: No - PSYCHIATRIC Hx Substance Use: No - SURGICAL HISTORY Hx Surgeries: No - ANESTHESIA Hx Anesthesia: Yes Hx Anesthesia Reactions: No Meds Allergies/Adverse Reactions: Allergies Allergy/AdvReac Type Severity Reaction Status Date / Time No Known Allergies Allergy Verified 12/07/17 00:48 - Medications Medications: Current Medications Amlodipine Besylate (Norvasc) 10 mg PO DAILY [facility] Last Admin: 12/08/17 16:46 Dose: 10 mg Calcium Acetate (Phoslo) 2,001 mg PO TIDCC [facility] Last Admin: 12/08/17 12:47 Dose: 2,001 mg Clonidine HCl (Catapres) 0.1 mg PO BID [facility] Last Admin: 12/08/17 16:46 Dose: 0.1 mg Furosemide (Lasix) 40 mg IVP BID [facility] Last Admin: 12/08/17 09:55 Dose: 40 mg Guaifenesin/Dextromethorphan (Robitussin Dm) 5 ml PO Q4H PRN PRN Reason: Cough Last Admin: 12/07/17 21:13 Dose: 5 ml Lisinopril (Zestril) 40 mg PO DAILY [facility] Last Admin: 12/08/17 13:01 Dose: Not Given Spironolactone (Aldactone) 25 mg PO DAILY [facility] Physical Exam - Constitutional Appears: Cachectic, Chronically Ill - Head Exam Head Exam: ATRAUMATIC - Eye Exam Eye Exam: EOMI, Normal appearance - ENT Exam ENT Exam: Mucous Membranes Dry - Neck Exam Neck exam: Positive for: Full Rom - Respiratory Exam Respiratory Exam: Clear to Auscultation Bilateral - Cardiovascular Exam Cardiovascular Exam: REGULAR RHYTHM (Pos s3), +S4 - GI/Abdominal Exam GI & Abdominal Exam: Normal Bowel Sounds - Back Exam Back exam: NORMAL INSPECTION - Neurological Exam Neurological exam: Alert, CN II-XII Intact, Oriented x3 - Psychiatric Exam Psychiatric exam: Normal Affect, Normal Mood - Skin Skin Exam: Normal Color Results - Vital Signs Recent Vital Signs: Last Vital Signs Temp 98.2 F 12/08/17 13:50 Pulse 95 H 12/08/17 13:50 Resp 18 12/08/17 13:50 BP 169/105 H 12/08/17 15:35 Pulse Ox 99 12/08/17 13:50 - Labs Result Diagrams: 12/08/17 06:29 12/08/17 06:29 Labs: Laboratory Results - last 24 hr 12/07/17 12/07/17 12/07/17 22:38 22:38 22:47 WBC RBC Hgb Hct MCV MCH MCHC RDW Plt Count MPV Neut % (Auto) Lymph % (Auto) Lea % (Auto) Eos % (Auto) Baso % (Auto) Neut # (Auto) Lymph # (Auto) Lea # (Auto) Eos # (Auto) Baso # (Auto) Sodium Potassium Chloride Carbon Dioxide Anion Gap BUN Creatinine Est GFR ( Amer) Est GFR (Non-Af Amer) Random Glucose Calcium Phosphorus Magnesium Total Bilirubin AST ALT Alkaline Phosphatase Total Protein Albumin Globulin Albumin/Globulin Ratio Urine Color Yellow Urine Clarity Clear Urine pH 9.0 Ur Specific Y[place] 1.010 Urine Protein 3+ H Urine Glucose (UA) 2+ H Urine Ketones Negative Urine Blood Negative Urine Nitrate Negative Urine Bilirubin Negative Urine Urobilinogen Normal Ur Leukocyte Esterase Neg Urine WBC (Auto) 1 Urine RBC (Auto) < 1 Urine Bacteria Rare Urine Opiates Screen Negative Urine Methadone Screen Negative Ur Barbiturates Screen Negative Ur Phencyclidine Scrn Negative Ur Amphetamines Screen Negative U Benzodiazepines Scrn Negative U Oth Cocaine Metabols Negative U Cannabinoids Screen Negative H.influenzae Type B Ag Negative Ur L.pneumophila Ag Negative N.meningitidis ACY/W135 Negative N.meningi B/E.coli K1 Ag Negative Group B Strep Antigen Negative S. pneumoniae Antigen Negative 12/08/17 12/08/17 06:29 06:29 WBC 7.0 RBC 3.66 L Hgb 11.6 L Hct 34.8 L MCV 94.9 H MCH 31.7 H MCHC 33.4 RDW 16.7 H Plt Count 131 MPV 11.0 Neut % (Auto) 63.7 Lymph % (Auto) 23.1 Lea % (Auto) 8.7 Eos % (Auto) 3.9 Baso % (Auto) 0.6 Neut # (Auto) 4.5 Lymph # (Auto) 1.6 Lea # (Auto) 0.6 Eos # (Auto) 0.3 Baso # (Auto) 0.0 Sodium 141 Potassium 4.6 Chloride 101 Carbon Dioxide 28 Anion Gap 17 BUN 37 H Creatinine 8.4 H* Est GFR ( Amer) 8 Est GFR (Non-Af Amer) 7 Random Glucose 100 Calcium 9.5 Phosphorus 4.9 H Magnesium 2.3 Total Bilirubin 0.8 AST 20 ALT 25 Alkaline Phosphatase 71 Total Protein 6.6 Albumin 3.4 L Globulin 3.2 Albumin/Globulin Ratio 1.1 Urine Color Urine Clarity Urine pH Ur Specific [place] Urine Protein Urine Glucose (UA) Urine Ketones Urine Blood Urine Nitrate Urine Bilirubin Urine Urobilinogen Ur Leukocyte Esterase Urine WBC (Auto) Urine RBC (Auto) Urine Bacteria Urine Opiates Screen Urine Methadone Screen Ur Barbiturates Screen Ur Phencyclidine Scrn Ur Amphetamines Screen U Benzodiazepines Scrn U Oth Cocaine Metabols U Cannabinoids Screen H.influenzae Type B Ag Ur L.pneumophila Ag N.meningitidis ACY/W135 N.meningi B/E.coli K1 Ag Group B Strep Antigen S. pneumoniae Antigen - EKG Data EKG Interpreted by: Myself EKG shows normal: Sinus rhythm (as above) Assessment & Plan - Assessment and Plan (Free Text) Assessment: 1. Hypertensive cardiomyopathy: with echo characteristics that portend a poor prognosis. Pt might actually need ICD (no insurance, not eligible for life vest). Aggressive BP lowering is required. pt is already on an melvin inhibitor: I prefer bid dosing of MELVIN: will also start on coreg 25 bid. Aldactone is not appropriate in dialysis patients (cutoff in RALES trial was cr greater than 2.5). Clonidine could be increase afterwards if need be as long as beta moreno and clonidine do not result in excessive bradycardia. Pt is on norvasc. IF bp remains refractory, other agents such as hydralazine, and then later cardura and even mnoxidil may be required, in that order. 2. The etiology of cardiomyopathy is most likely from resistant HTN: however, an assessment for CAD will be required. This can be done as an outpatient. Certainly the patient must be out of heart failure for a nuclear stress with controlled BP. Trivial TNI elevation in renal failure has a low specificity for acute ischemia. 3. The patient must be 100% compliant for LV EF to improve. If after three to 4 months, with better BP, If repeat echo does not improve EF, then if EF is dete rmined to be less than 30% at that time, , then an ICD will likely be advised.
[2017-12-08] MEDS ORDERED: Sodium Chloride 0.9% 250 ML IV ONE (19:00)
--- NOTE | 2017-12-08 19:30 | CP.PCM.PN ---
Subjective - Date & Time of Evaluation Date of Evaluation: 12/08/17 Time of Evaluation: 13:00 - Subjective Subjective: Patient reports sob and cough improved; no longer needing supplemental O2; cramped during HD yesterday and overnight; Objective - Vital Signs/Intake and Output Vital Signs (last 24 hours): Temp Pulse Resp BP Pulse Ox 97.9 F 98 H 20 172/96 H 97 12/08/17 17:51 12/08/17 18:00 12/08/17 17:51 12/08/17 18:00 12/08/17 17:51 - Medications Medications: Current Medications Amlodipine Besylate (Norvasc) 10 mg PO DAILY [facility] Last Admin: 12/08/17 16:46 Dose: 10 mg Calcium Acetate (Phoslo) 2,001 mg PO TIDCC [facility] Last Admin: 12/08/17 18:00 Dose: 2,001 mg Carvedilol (Coreg) 25 mg PO BID [facility] Last Admin: 12/08/17 18:00 Dose: 25 mg Clonidine HCl (Catapres) 0.1 mg PO BID [facility] Last Admin: 12/08/17 18:05 Dose: Not Given Furosemide (Lasix) 40 mg IVP BID [facility] Last Admin: 12/08/17 17:59 Dose: 40 mg Guaifenesin/Dextromethorphan (Robitussin Dm) 5 ml PO Q4H PRN PRN Reason: Cough Last Admin: 12/07/17 21:13 Dose: 5 ml Sodium Chloride (Sodium Chloride 0.9%) 250 mls @ 60 mls/hr IV .Q4H10M ONE Stop: 12/08/17 23:09 Losartan Potassium (Cozaar) 50 mg PO BID [facility] Last Admin: 12/08/17 18:00 Dose: 50 mg Spironolactone (Aldactone) 25 mg PO DAILY [facility] - Labs Labs: 12/08/17 06:29 12/08/17 06:29 - Constitutional Appears: Non-toxic, No Acute Distress - Eye Exam Eye Exam: Normal appearance - Respiratory Exam Respiratory Exam: Clear to Ausculation Bilateral. absent: Respiratory Distress - Cardiovascular Exam Cardiovascular Exam: RRR, +S1, +S2. absent: Gallop, Rubs - GI/Abdominal Exam GI & Abdominal Exam: Soft. absent: Distended, Tenderness - Extremities Exam Additional comments: no leg edema; - Neurological Exam Neurological Exam: Alert, Awake - Psychiatric Exam Psychiatric exam: Normal Mood. absent: Agitated - Skin Skin Exam: Warm. absent: Cyanosis Assessment and Plan (1) Acute CHF Assessment & Plan: Acute severely decompensated systolic and diastolic CHF; cardio consult much a ppreciated; needs much more aggressive anti-htn control; no significant pericardial effusion on review of echo; -will continue to keep euvolemic with HD and slowly challenge dry weight; -max dose B-blockers and ARB per cardio; Status: Acute (2) ESRD on hemodialysis Assessment & Plan: Stable electrolyte status; euvolemic on exam but with severe diastolic and systolic dysfunction, has very tenuous volume status; -dialyzing today to continue to challenge patient's estimated dry weight; next HD tomorrow per routine, will continue on TTS schedule; Status: Acute (3) Hypertensive CKD (chronic kidney disease) Assessment & Plan: BP Status: Acute (4) Chronic kidney disease-mineral and bone disorder Assessment & Plan: Phos controlled on phoslo 3 tabs w/ meals, continue same; Status: Chronic (5) Anemia in CKD (chronic kidney disease) Assessment & Plan: Hgb above goal for ESRD; monitor; no need for EPO currently; Status: Chronic
[2017-12-09 07:30] LABS: BASO # 0.1 K/uL (0.0-0.2); BASO % 0.9 % (0.0-2.0); EOS # 0.5 K/uL (0.0-0.7); EOS % 7.6 % (0.0-4.0); HEMOGLOBIN 11.2 g/dL (12.0-18.0); LYMPH % 17.2 % (20.0-40.0); MEAN CELL VOLUME 93.6 fL (80.0-94.0); MEAN CORPUSCULAR HEMOGLOBIN 31.7 pg (27.0-31.0); MEAN CORPUSCULAR HGB CONC 33.8 g/dL (33.0-37.0); MEAN PLATELET VOLUME 10.7 fL (7.2-11.7); MONO # 0.6 K/uL (0.0-0.8); MONO % 9.5 % (0.0-10.0); NEUT # 3.9 K/uL (1.8-7.0); NEUT % 64.8 % (50.0-75.0); RBC 3.55 Mil/uL (4.40-5.90); RED CELL DISTRIBUTION WIDTH 16.6 % (11.5-14.5)
[2017-12-09 07:47] LABS: ALBUMIN 3.2 g/dL (3.5-5.0); CALCIUM 9.2 mg/dl (8.6-10.4)
--- NOTE | 2017-12-09 09:45 | CP.PCM.PN ---
Subjective - Date & Time of Evaluation Date of Evaluation: 12/09/17 Time of Evaluation: 09:44 - Subjective Subjective: PGY-[address] Maurer. Patient seen and evaluated at bedside. No acute events overnight. Patient states he feels much better. States orthopnea has resolved and cough has improved significantly. Had dialysis yesterday and will resume with TTS dialysis schedule today. Denies chest pain, shortness of breath, fever, chills, leg swelling. Objective - Vital Signs/Intake and Output Vital Signs (last 24 hours): Temp Pulse Resp BP Pulse Ox 98.2 F 80 20 139/84 99 12/09/17 08:11 12/09/17 08:11 12/09/17 08:11 12/09/17 09:33 12/09/17 08:11 Intake and Output: 12/09/17 12/09/17 06:59 18:59 Intake Total 300 Balance 300 - Medications Medications: Current Medications Amlodipine Besylate (Norvasc) 10 mg PO DAILY [facility] Last Admin: 12/09/17 09:34 Dose: 10 mg Calcium Acetate (Phoslo) 2,001 mg PO TIDCC [facility] Last Admin: 12/09/17 08:12 Dose: 2,001 mg Carvedilol (Coreg) 25 mg PO BID [facility] Last Admin: 12/09/17 09:33 Dose: 25 mg Clonidine HCl (Catapres) 0.1 mg PO BID [facility] Last Admin: 12/09/17 09:34 Dose: 0.1 mg Furosemide (Lasix) 40 mg IVP BID [facility] Last Admin: 12/09/17 09:33 Dose: 40 mg Guaifenesin/Dextromethorphan (Robitussin Dm) 5 ml PO Q4H PRN PRN Reason: Cough Last Admin: 12/07/17 21:13 Dose: 5 ml Losartan Potassium (Cozaar) 50 mg PO BID [facility] Last Admin: 12/09/17 09:33 Dose: 50 mg Spironolactone (Aldactone) 25 mg PO DAILY [facility] - Labs Labs: 12/09/17 07:06 12/09/17 07:06 - Additional Findings Additional findings: - Constitutional Appears: Non-toxic, No Acute Distress - Head Exam Head Exam: ATRAUMATIC, NORMOCEPHALIC - Eye Exam Eye Exam: EOMI, PERRL - ENT Exam ENT Exam: Mucous Membranes Moist - Neck Exam Neck Exam: Full ROM - Respiratory Exam Respiratory Exam: Clear to auscultation bilaterally absent: Rales, Rhonchi, Wheezes - Cardiovascular Exam Cardiovascular Exam: REGULAR RHYTHM, +S1, +S2. absent: Tachycardia - GI/Abdominal Exam GI & Abdominal Exam: Soft. absent: Guarding, Tenderness, Rebound - Extremities Exam Extremities Exam: Full ROM. absent: Calf Tenderness, Pedal Edema - Neurological Exam Neurological Exam: Alert, Awake, Oriented x3 Assessment and Plan - Assessment and Plan (Free Text) Plan: Plan: A/P: Patient is a 42 year old male with past medical history of ESRD on HD TThS and Hypertension who presented with worsening shortness of breath and cough. Patient transferred to [facility] for emergent dialysis. Shortness of Breath secondary to CHF -CXR 12/06/17: Bibasilar infiltrates. Possible very small L pleural effusion. Follow up advised. -Repeat CXR 12/08/17: Cardiomegaly and presumed cardiogenic pulmonary edema. (see full report). -EKG on admission showed sinus tachycardia -Repeat EKG 12/08/17: NSR with prolonged QTc at 480ms -Elevated BNP 233,000 -Echocardiogram 12/07/17: LV is mildly dilated. Mild concentric LV hypertrophy. EF is 30-35%. Global hypokenesis of LV. Markedly increased LA volume index of 62. Moderate to severe LV diastolic dysfunction. LA is moderately dilated. ASD with L->R shunt, ostium secundum. (see full report) -Nephrology on consult, help appreciated -Cardiology, Dr. Lizarraga, consulted. Help appreciated. ESRD on HD TTS -Patient received dialysis 12/06, 12/07, 12/08, 12/09 -Calcium acetate 667mg PO TID -Renal diet: low sodium, fluid restriction -Daily weights and intake/output -Nephrology on consult, Dr Duarte, help appreciated resume TTS dialysis schedule Hypertension with cardiomyopathy -Clonidine 0.1mg PO BID -Norvasc 10mg PO daily -Furosemide 40mg BID -Losartan 50mg BID -Carvedilol 25mg BID -Cardiology, Dr. Lizarraga, consulted. Help appreciated. Aggressive BP control. Recommend outpatient CAD assessment. If no LVEF improvement in 3-4 months, ICD advised. Add losartan and carvedilol, DC ACEi and hold aldactone following BP improved from 170s/100-90s to 120-130s/70-80s Cough, r/o infectious etiology -Blood cultures: prelim- No growth 24H -Mycoplasma, legionella, strep pneumo negative -Robitussin DM Q4H prn cough -Dc'ed azithromycin 500mg, ceftriaxone 1gm due to QT prolongation Anemia -Hemoglobin 10.7 on admission, 11.5 on 12/07/17 -Likely secondary to chronic disease -Monitor hemoglobin GI/DVT ppx: -No GI ppx indicated at this time -SCDs
--- NOTE | 2017-12-09 17:14 | CP.PCM.PN ---
Subjective - Date & Time of Evaluation Date of Evaluation: 12/09/17 Time of Evaluation: 17:11 - Subjective Subjective: Pt feels better, cough has resolved. He is in dialysis. Cr improved. BP improved. Objective - Vital Signs/Intake and Output Vital Signs (last 24 hours): Temp Pulse Resp BP Pulse Ox 98.2 F 80 20 139/84 99 12/09/17 08:11 12/09/17 08:11 12/09/17 08:11 12/09/17 09:33 12/09/17 08:11 Intake and Output: 12/09/17 12/09/17 06:59 18:59 Intake Total 300 Balance 300 - Medications Medications: Current Medications Amlodipine Besylate (Norvasc) 10 mg PO DAILY [facility] Last Admin: 12/09/17 09:34 Dose: 10 mg Calcium Acetate (Phoslo) 2,001 mg PO TIDCC [facility] Last Admin: 12/09/17 12:36 Dose: 2,001 mg Carvedilol (Coreg) 25 mg PO BID [facility] Last Admin: 12/09/17 09:33 Dose: 25 mg Clonidine HCl (Catapres) 0.1 mg PO BID [facility] Last Admin: 12/09/17 09:34 Dose: 0.1 mg Furosemide (Lasix) 40 mg PO BID [facility] Guaifenesin/Dextromethorphan (Robitussin Dm) 5 ml PO Q4H PRN PRN Reason: Cough Last Admin: 12/07/17 21:13 Dose: 5 ml Losartan Potassium (Cozaar) 50 mg PO BID [facility] Last Admin: 12/09/17 09:33 Dose: 50 mg - Labs Labs: 12/09/17 07:06 12/09/17 07:06 - Constitutional Appears: Cachectic - Head Exam Head Exam: ATRAUMATIC - ENT Exam ENT Exam: Mucous Membranes Moist - Neck Exam Neck Exam: Full ROM - Respiratory Exam Respiratory Exam: Clear to Ausculation Bilateral - Cardiovascular Exam Cardiovascular Exam: REGULAR RHYTHM (S3) - GI/Abdominal Exam GI & Abdominal Exam: Normal Bowel Sounds - Rectal Exam Rectal Exam: NORMAL INSPECTION - Exam External exam: NORMAL EXTERNAL EXAM - Extremities Exam Extremities Exam: Normal Inspection - Back Exam Back Exam: NORMAL INSPECTION - Neurological Exam Neurological Exam: Alert - Psychiatric Exam Psychiatric exam: Normal Affect, Normal Mood - Skin Skin Exam: Normal Color Assessment and Plan - Assessment and Plan (Free Text) Assessment: 1. Hypertensive cardiomyopathy: bp is better, bur for EF to improve, better BP is still needed. Add hydralazine, and later nitrates. IF bp is controlled, can come off clonidine. 2. Eventual nuclear stress to ass ess for CAD, but ischemic cardiomyopathy less likely based on presentation and echo. 3. Pt may eventually need ICD if E does not improve.
[2017-12-10 00:53] VITALS: RESP 20
[2017-12-10 06:34] LABS: BASO # 0.1 K/uL (0.0-0.2); EOS # 0.6 K/uL (0.0-0.7); EOS % 11.1 % (0.0-4.0); HEMOGLOBIN 11.6 g/dL (12.0-18.0); LYMPH % 18.1 % (20.0-40.0); MEAN CELL VOLUME 93.6 fL (80.0-94.0); MEAN CORPUSCULAR HEMOGLOBIN 32.2 pg (27.0-31.0); MEAN CORPUSCULAR HGB CONC 34.4 g/dL (33.0-37.0); MEAN PLATELET VOLUME 10.5 fL (7.2-11.7); MONO # 0.6 K/uL (0.0-0.8); MONO % 11.8 % (0.0-10.0); NEUT # 3.1 K/uL (1.8-7.0); RBC 3.6 Mil/uL (4.40-5.90); WHITE BLOOD COUNT 5.3 K/uL (4.8-10.8)
[2017-12-10 06:38] LABS: ALB/GLOB RATIO 1.1 (1.0-2.1); ALBUMIN 3.4 g/dL (3.5-5.0); CALCIUM 9.4 mg/dl (8.6-10.4)
--- NOTE | 2017-12-10 07:04 | CP.PCM.DIS ---
Provider - Provider Date of Admission: 12/07/17 01:31 Attending physician: Jimmy Maurer MD Consults: Dr. Duarte, Dr. Lizarraga Time Spent in preparation of Discharge (in minutes): 35 Hospital Course - Lab Results Lab Results: Micro Results 12/07/17 07:03 Blood-During Dialysis Blood Culture - Preliminary NO GROWTH AFTER 3 DAYS 12/07/17 07:03 Blood-During Dialysis Blood Culture - Preliminary NO GROWTH AFTER 3 DAYS Most Recent Lab Values WBC 5.3 K/uL (4.8-10.8) 12/10/17 06:15 RBC 3.60 Mil/uL (4.40-5.90) L 12/10/17 06:15 Hgb 11.6 g/dL (12.0-18.0) L 12/10/17 06:15 Hct 33.7 % (35.0-51.0) L 12/10/17 06:15 MCV 93.6 fL (80.0-94.0) 12/10/17 06:15 MCH 32.2 pg (27.0-31.0) H 12/10/17 06:15 MCHC 34.4 g/dL (33.0-37.0) 12/10/17 06:15 RDW 16.0 % (11.5-14.5) H 12/10/17 06:15 Plt Count 132 K/uL (130-400) 12/10/17 06:15 MPV 10.5 fL (7.2-11.7) 12/10/17 06:15 Neut % (Auto) 58.0 % (50.0-75.0) 12/10/17 06:15 Lymph % (Auto) 18.1 % (20.0-40.0) L 12/10/17 06:15 [place] % (Auto) 11.8 % (0.0-10.0) H 12/10/17 06:15 Eos % (Auto) 11.1 % (0.0-4.0) H 12/10/17 06:15 Baso % (Auto) 1.0 % (0.0-2.0) 12/10/17 06:15 Neut # (Auto) 3.1 K/uL (1.8-7.0) 12/10/17 06:15 Lymph # (Auto) 1.0 K/uL (1.0-4.3) 12/10/17 06:15 [place] # (Auto) 0.6 K/uL (0.0-0.8) 12/10/17 06:15 Eos # (Auto) 0.6 K/uL (0.0-0.7) 12/10/17 06:15 Baso # (Auto) 0.1 K/uL (0.0-0.2) 12/10/17 06:15 Sodium 139 mmol/L (132-148) 12/10/17 06:15 Potassium 4.0 mmol/L (3.6-5.2) 12/10/17 06:15 Chloride 101 mmol/L (98-107) 12/10/17 06:15 Carbon Dioxide 29 mmol/L (22-30) 12/10/17 06:15 Anion Gap 14 (10-20) 12/10/17 06:15 BUN 28 mg/dL (9-20) H 12/10/17 06:15 Creatinine 6.6 mg/dL (0.8-1.5) H 12/10/17 06:15 Est GFR ( Amer) 11 12/10/17 06:15 Est GFR (Non-Af Amer) 9 12/10/17 06:15 Random Glucose 93 mg/dL (75-110) 12/10/17 06:15 Lactic Acid 1.6 mmol/L (0.7-2.1) 12/07/17 01:23 Calcium 9.4 mg/dl (8.6-10.4) 12/10/17 06:15 Phosphorus 4.5 mg/dL (2.5-4.5) 12/10/17 06:15 Magnesium 2.0 mg/dL (1.6-2.3) 12/10/17 06:15 Total Bilirubin 0.6 mg/dL (0.2-1.3) 12/10/17 06:15 AST 22 U/L (17-59) 12/10/17 06:15 ALT 27 U/L (21-72) 12/10/17 06:15 Alkaline Phosphatase 67 U/L (38-126) 12/10/17 06:15 Total Protein 6.5 g/dL (6.3-8.3) 12/10/17 06:15 Albumin 3.4 g/dL (3.5-5.0) L 12/10/17 06:15 Globulin 3.2 gm/dL (2.2-3.9) 12/10/17 06:15 Albumin/Globulin Ratio 1.1 (1.0-2.1) 12/10/17 06:15 Urine Color Yellow (YELLOW) 12/07/17 22:38 Urine Clarity Clear (Clear) 12/07/17 22:38 Urine pH 9.0 (5.0-8.0) 12/07/17 22:38 Ur Specific [place] 1.010 (1.003-1.030) 12/07/17 22:38 Urine Protein 3+ mg/dL (NEGATIVE) H 12/07/17 22:38 Urine Glucose (UA) 2+ mg/dL (Normal) H 12/07/17 22:38 Urine Ketones Negative mg/dL (NEGATIVE) 12/07/17 22:38 Urine Blood Negative (NEGATIVE) 12/07/17 22:38 Urine Nitrate Negative (NEGATIVE) 12/07/17 22:38 Urine Bilirubin Negative (NEGATIVE) 12/07/17 22:38 Urine Urobilinogen Normal mg/dL (0.2-1.0) 12/07/17 22:38 Ur Leukocyte Esterase Neg Nicki/uL (Negative) 12/07/17 22:38 Urine WBC (Auto) 1 /hpf (0-5) 12/07/17 22:38 Urine RBC (Auto) < 1 /hpf (0-3) 12/07/17 22:38 Urine Bacteria Rare (<OCC) 12/07/17 22:38 Urine Opiates Screen Negative (NEGATIVE) 12/07/17 22:38 Urine Methadone Screen Negative (NEGATIVE) 12/07/17 22:38 Ur Barbiturates Screen Negative (NEGATIVE) 12/07/17 22:38 Ur Phencyclidine Scrn Negative (NEGATIVE) 12/07/17 22:38 Ur Amphetamines Screen Negative (NEGATIVE) 12/07/17 22:38 U Benzodiazepines Scrn Negative (NEGATIVE) 12/07/17 22:38 U Oth Cocaine Metabols Negative (NEGATIVE) 12/07/17 22:38 U Cannabinoids Screen Negative (NEGATIVE) 12/07/17 22:38 H.influenzae Type B Ag Negative (NEGATIVE) 12/07/17 22:47 Ur L.pneumophila Ag Negative (NEGATIVE) 12/07/17 22:47 Mycoplasma pneumon IgM Negative (NEGATIVE) 12/07/17 06:55 N.meningitidis ACY/W135 Negative (NEGATIVE) 12/07/17 22:47 N.meningi B/E.coli K1 Ag Negative (NEGATIVE) 12/07/17 22:47 Group B Strep Antigen Negative (NEGATIVE) 12/07/17 22:47 S. pneumoniae Antigen Negative (NEGATIVE) 12/07/17 22:47 - Hospital Course Hospital Course: On Admission: HPI: Patient is a 42 year old male with past medical history of hypertension, ESRD on HD TThS who was transferred from [facility] ED to [facility] for emergent dialysis. Patient states that for the past few days he has been experiencing worsening shortness of breath. He states that he is complaint with hemodialysis and his medications. He denies any increase in fluid or salt intake. When he went to hemodialysis on Wednesday, 1.5L were removed which is more than usual. Patient states that laying down makes shortness of breath worse and sitting up makes it better. He states that this has never happened to him before. Patient also states that he has been experiencing cough for the past two weeks. Within the last 2 days, cough has been productive with orange sputum. He denies any sick contacts or recent travel. Patient is still short of breath and actively coughing. He last saw Dr Duarte 2 weeks ago. At that time, one of his medications were stopped (he is unsure which one) and he was started on Clonidine 0.1mg PO BID. He denies fevers, chills, headaches, dizziness, changes in vision/hearing, n ausea/vomiting, chest pain, palpitations, abdominal pain, urinary symptoms, changes in bowel habits, leg swelling/pain. Patient states that he still makes small amounts of urine. Hospital Course: Patient admitted for new onset CHF and ESRD on HD. An initial CXR 12/06/17 showed Bibasilar infiltrates. Possible very small L pleural effusion. Repeat CXR 12/08/17 showed Cardiomegaly and presumed cardiogenic pulmonary edema. (see full report). An echo was obtained. Echocardiogram 12/07/17: LV is mildly dilated. Mild concentric LV hypertrophy. EF is 30-35%. Global hypokenesis of LV. Markedly increased LA volume index of 62. Moderate to severe LV diastolic dysfunction. LA is moderately dilated. ASD with L->R shunt, ostium secundum. (see full report). Dr. Lizarraga, cardiology was consulted who recommended aggressive BP control, which was done. Also recommended outpatient CAD assessment. If no LVEF improvement in 3-4 months, ICD advised. Dr. Duarte, nephrology was consulted. Patient received dialysis 12/07, 12/08, 12/09 and symptoms improved. Patient is now to return to normal dialysis schedule. Discharge instructions: Patient is stable for discharge as per Dr. Maurer. Patient is to follow up with your primary care doctor within one week of discharge to coordinate care and to obtain a electrophonic engineer referral. Patient is recommended to have a nuclear stress test to assess for coronary artery disease. If you do not have a primary care doctor, you may follow up at the [facility] in [facility]. Call [phone] to make an appointment. Your heart function is very low. It is important for patient to strictly control blood pressure for heart function to improve. A repeat Echocardiogram is recommended in 3-4 months. If at that time, heart function does not improve, an ICD is recommended. Patient is also to follow up with Dr. Duarte within one week of discharge. Patient is discharged with the following medications: Amlodipine 10mg PO daily Carvedilol 25mg PO BID Clonidine 0.1mg PO BID Furosemide 40mg PO BID Hydralazine 25mg PO BID Losartan 50mg PO BID Calcium acetate 2001mg TIDCC Patient is to stop taking enalapril and aldactone. Patient is to return to emergency room if new or worsening symptoms occur. Discharge Exam - Additional Findings Additional findings: Additional findings: - Constitutional Appears: Non-toxic, No Acute Distress - Head Exam Head Exam: ATRAUMATIC, NORMOCEPHALIC - Eye Exam Eye Exam: EOMI, PERRL - ENT Exam ENT Exam: Mucous Membranes Moist - Neck Exam Neck Exam: Full ROM - Respiratory Exam Respiratory Exam: Clear to auscultation bilaterally absent: Rales, Rhonchi, Wheezes - Cardiovascular Exam Cardiovascular Exam: REGULAR RHYTHM, +S1, +S2. absent: Tachycardia - GI/Abdominal Exam GI & Abdominal Exam: Soft. absent: Guarding, Tenderness, Rebound - Extremities Exam Extremities Exam: Full ROM. absent: Calf Tenderness, Pedal Edema - Neurological Exam Neurological Exam: Alert, Awake, Oriented x3 Discharge Plan - Discharge Medications Prescriptions: amLODIPine [Norvasc] 10 mg PO DAILY #14 tab Calcium Acetate [Phoslo] 667 mg PO TIDCC #90 tab Carvedilol [Coreg] 25 mg PO BID #28 tab cloNIDine [Catapres] 0.1 mg PO BID #28 tab Furosemide [Lasix] 40 mg PO BID #28 tab hydrALAZINE [Apresoline] 25 mg PO TID #42 tab Losartan [Cozaar] 50 mg PO BID #28 tab - Follow Up Plan Condition: GUARDED Disposition: HOME/ ROUTINE Instructions: End Stage Kidney Disease (DC), Heart Failure (DC) Additional Instructions: Patient is stable for discharge as per Dr. Maurer. Patient is to follow up with your primary care doctor within one week of discharge to coordinate care and to obtain a electrophonic engineer referral. Patient is recommended to have a nuclear stress test to assess for coronary artery disease. If you do not have a primary care doctor, you may follow up at the [facility] in [facility]. Call [phone] to make an appointment. Your heart function is very low. It is important for patient to strictly control blood pressure for heart function to improve. A repeat Echocardiogram is recommended in 3-4 months. If at that time, heart function does not improve, an ICD is recommended. Patient is also to follow up with Dr. Duarte within one week of discharge. Patient is discharged with the following medications: Amlodipine 10mg PO daily Carvedilol 25mg PO BID Clonidine 0.1mg PO BID Furosemide 40mg PO BID Hydralazine 25mg PO BID Losartan 50mg PO BID Calcium acetate 667mg take 3 tablets 3x per day with meals. Patient is to stop taking enalapril and aldactone. Patient is to return to emergency room if new or worsening symptoms occur. Referrals: Tariq Lizarraga MD [Staff Provider] - Austen Duarte MD [Staff Provider] - Clinical Quality Measures - CQM - Heart Failure Ejection Fraction: Less Than 40 % MELVIN Inhibitor Prescribed: No Contraindication/Reason for not providing: prescribed arb Beta-Antwon Prescribed: Carvedilol Angiotensin II Receptor Antwon Prescribed: Yes AnticoagulationTherapy for Atrial Fibrillation/Atrialflutter: No Contraindication/Reason for not providing: not indicated Aldosterone Antagonist Prescribed: No Contraindication/Reason for not providing: not indicated Hydralazine Nitrate Prescribed: Yes Implantable Cardioverter Defibrillator Therapy: No Contraindication/Reason for not providing: follow up outpatient Cardiac Resynchronization Therapy Prescribed: No Contraindication/Reason for not providing: not indicated Will be discharged to: Home Follow Up Date (must be within 7 days from discharge): 12/17/17 Follow Up Time: 12:00
--- NOTE | 2017-12-10 07:15 | CP.PCM.PN ---
Subjective - Date & Time of Evaluation Date of Evaluation: 12/09/17 Time of Evaluation: 13:00 - Subjective Subjective: Patient reports feeling well; no sob; no cramping last night; Objective - Vital Signs/Intake and Output Vital Signs (last 24 hours): Temp Pulse Resp BP Pulse Ox 99.1 F 79 20 124/73 98 12/10/17 00:00 12/10/17 00:00 12/10/17 00:00 12/10/17 00:00 12/10/17 00:00 - Medications Medications: Current Medications Amlodipine Besylate (Norvasc) 10 mg PO DAILY [facility] Last Admin: 12/09/17 09:34 Dose: 10 mg Calcium Acetate (Phoslo) 2,001 mg PO TIDCC [facility] Last Admin: 12/09/17 17:47 Dose: 2,001 mg Carvedilol (Coreg) 25 mg PO BID [facility] Last Admin: 12/09/17 17:49 Dose: 25 mg Clonidine HCl (Catapres) 0.1 mg PO BID [facility] Last Admin: 12/09/17 19:16 Dose: 0.1 mg Furosemide (Lasix) 40 mg PO BID [facility] Last Admin: 12/09/17 19:16 Dose: 40 mg Guaifenesin/Dextromethorphan (Robitussin Dm) 5 ml PO Q4H PRN PRN Reason: Cough Last Admin: 12/07/17 21:13 Dose: 5 ml Hydralazine HCl (Apresoline) 25 mg PO TID [facility] Last Admin: 12/09/17 17:48 Dose: 25 mg Losartan Potassium (Cozaar) 50 mg PO BID [facility] Last Admin: 12/09/17 17:49 Dose: 50 mg - Labs Labs: 12/10/17 06:15 12/10/17 06:15 - Constitutional Appears: Non-toxic, No Acute Distress - Eye Exam Eye Exam: Normal appearance - Respiratory Exam Respiratory Exam: Clear to Ausculation Bilateral. absent: Respiratory Distress - Cardiovascular Exam Cardiovascular Exam: RRR, +S1, +S2 - GI/Abdominal Exam GI & Abdominal Exam: Soft. absent: Distended, Tenderness - Extremities Exam Additional comments: no leg edema; - Neurological Exam Neurological Exam: Alert, Awake - Psychiatric Exam Psychiatric exam: Normal Mood. absent: Agitated - Skin Skin Exam: Warm. absent: Cyanosis Assessment and Plan (1) Acute CHF Assessment & Plan: Acute severely decompensated systolic and diastolic CHF; much improved after UF on multiple HD sessions and more aggressive BP control; continue B-blockers/ARB per cardio, will d/c home on PO lasix; will need outpatient cardio f/u; discussed with primary team, stable for d/c from nephro; Status: Acute (2) ESRD on hemodialysis Assessment & Plan: Stable volume and electrolyte status, HD today per routine; Status: Acute (3) Hypertensive CKD (chronic kidney disease) Assessment & Plan: Much improved BP control, continue current meds at home; will monitor closely as outpatient; Status: Acute (4) Chronic kidney disease-mineral and bone disorder Assessment & Plan: Phos controlled, continuing with phoslo; Status: Chronic (5) Anemia in CKD (chronic kidney disease) Status: Chronic
[2017-12-10 08:08] VITALS: BP 143/76; TEMP 97.7; O2SAT 96
[2017-12-10 14:32] VITALS: PULSE 76
--- NOTE | 2017-12-10 23:25 | CP.PCM.PN ---
Subjective - Date & Time of Evaluation Date of Evaluation: 12/10/17 Time of Evaluation: 11:30 - Subjective Subjective: Patient reports feeling well; no sob; cough improved; no lightheadedness on ambulation; Objective - Vital Signs/Intake and Output Vital Signs (last 24 hours): Temp Pulse Resp BP Pulse Ox 97.7 F 76 20 143/76 96 12/10/17 08:07 12/10/17 14:27 12/10/17 08:07 12/10/17 11:23 12/10/17 08:07 - Labs Labs: 12/10/17 06:15 12/10/17 06:15 - Constitutional Appears: Non-toxic, No Acute Distress - Eye Exam Eye Exam: Normal appearance. absent: Scleral icterus - ENT Exam ENT Exam: Mucous Membranes Moist - Respiratory Exam Respiratory Exam: Clear to Ausculation Bilateral. absent: Respiratory Distress - Cardiovascular Exam Cardiovascular Exam: RRR, +S1, +S2 - GI/Abdominal Exam GI & Abdominal Exam: Soft. absent: Distended, Tenderness - Extremities Exam Additional comments: no leg edema; - Neurological Exam Neurological Exam: Alert, Awake - Psychiatric Exam Psychiatric exam: Normal Affect, Normal Mood. absent: Agitated - Skin Skin Exam: Warm. absent: Cyanosis Assessment and Plan (1) Acute CHF Assessment & Plan: Resolved; does have systolic and severe diastolic dysfunction and so needs very aggressive BP control as well as staying very close to dry weight (which we have re-established at ~59 kg); new med list called into pharmacy today; will f/u as outpatient; Status: Acute (2) ESRD on hemodialysis Assessment & Plan: Stable volume and electrolyte status; next HD tomorrow as outpatient per routine; Status: Chronic (3) Hypertensive CKD (chronic kidney disease) Assessment & Plan: Much better controlled, will continue on current meds as outpatient (amlodipine 10, coreg 25 bid, hydralazine 25 tid, clonidine 0.1 bid, losartan 50 bid, lasix 40 bid); Status: Acute (4) Chronic kidney disease-mineral and bone disorder Assessment & Plan: Phos controlled, will continue on phoslo 3 tabs w/ each meal; Status: Chronic (5) Anemia in CKD (chronic kidney disease) Status: Chronic
--- NOTE | 2017-12-11 15:10 | CARD ---
APPROVED REPORT Date of service: 12/08/2017 EKG Measurement Heart [id number] <Conclusion> Normal sinus rhythm Prolonged QT Abnormal ECG
[2017-12-12 20:31] LABS: ALDO/PRA RATIO 1.3 Ratio (0.9-28.9)
== END 2017-12-10 12:52 | disposition home or self-care (01) | DRG 291 ==
LOC: C.ER 00:40 → C.9E 01:31 → C.5S 10:51
PROVIDERS: ADMIT Internal Medicine; ATTEND Internal Medicine
PROC: 5A1D70Z Performance of Urinary Filtration, Intermittent, Less than 6 Hours Per Day (ICD-10-PCS; principal; 2017-12-07)
PROC: 5A1D70Z Performance of Urinary Filtration, Intermittent, Less than 6 Hours Per Day (ICD-10-PCS; 2017-12-08)
PROC: 5A1D70Z Performance of Urinary Filtration, Intermittent, Less than 6 Hours Per Day (ICD-10-PCS; 2017-12-09)
DX: I13.2 Hypertensive heart and chronic kidney disease with heart failure and with stage 5 chronic kidney disease, or end stage renal disease (principal); I50.23 Acute on chronic systolic (congestive) heart failure; N18.6 End stage renal disease; Q21.1 Atrial septal defect; I25.10 Atherosclerotic heart disease of native coronary artery without angina pectoris; I27.20 Pulmonary hypertension, unspecified; Z99.2 Dependence on renal dialysis; D63.1 Anemia in chronic kidney disease; M89.9 Disorder of bone, unspecified; I42.9 Cardiomyopathy, unspecified